=== PATIENT | male | born 1975 | race Caucasian/White ===

== ENCOUNTER 2017-06-21 20:02 | Inpatient (IN) | payer SELFPAY ==
[~2017-06-21] VITALS: Ht 185.4 cm; Wt 99.8 kg
[2017-06-21] MEDS ORDERED: SODIUM CHLORIDE 0.9% 1,000 ML IV ONE ×2 (20:35→22:43)
[2017-06-21] MEDS ORDERED: ONDANSETRON HCL 4MG/2ML VIAL IV STA (20:35)
[2017-06-21] MEDS ORDERED: MORPHINE SULFATE 4 MG/ML CPJ (NOT FOR IM USE) IV STA ×2 (20:35→22:43)
[2017-06-21 23:24] LABS: CHLORIDE 109 mEq/L (98-107)
[2017-06-21 23:26] LABS: BASOPHILS % 0.2 % (0.0-2.0); EOSINOPHILS % 0.1 % (0.0-5.0); HEMATOCRIT. 42.8 % (42.0-52.0); HEMOGLOBIN. 13.8 g/dL (14.0-18.0); LYMPHOCYTES % 8.7 % (20.0-50.0); MEAN CORPUSCULAR HEMOGLOBIN 27.5 pg (28.0-32.0); MEAN CORPUSCULAR VOLUME 85.1 fL (80.0-94.0); MEAN PLATELET VOLUME 8.5 fl (7.4-10.4); MONOCYTES % 7.3 % (2.0-8.0); NEUTROPHILS % 83.7 % (40.0-76.0); PLATELET 310 x1000/uL (130-400); RED BLOOD CELL COUNT 5.03 mill/uL (4.7-6.1); RED CELL DISTRIBUTION WIDTH 13.4 % (11.6-14.6)
[2017-06-21 23:41] LABS: PROTHROMBIN TIME 10.6 sec (9.4-11.6)
[2017-06-22] MEDS: SODIUM CHLORIDE 0.45% 1,000 ML IV SCH (03:36)
[2017-06-22] MEDS ORDERED: ONDANSETRON HCL 4MG/2ML VIAL IV PRN (03:45)
[2017-06-22] MEDS ORDERED: DOCUSATE SODIUM 100MG CAPSULE PO PRN (03:45)
[2017-06-22] MEDS ORDERED: IPRATROPIUM/ALBUTEROL 0.5-3(2.5)MG/3ML NEB INH PRN (03:45)
[2017-06-22] MEDS ORDERED: CLONIDINE 0.1MG TABLET PO PRN (03:45)
[2017-06-22] MEDS ORDERED: HYDROCODONE/ACETAMINOPHEN 10/325MG TABLET PO PRN (03:45)
[2017-06-22] MEDS: HYDROMORPHONE HCL/PF 2MG/ML CPJ IV PRN ×6 (04:58→23:40)
[2017-06-22] MEDS: AMLODIPINE 10MG TABLET PO SCH (09:00)
[2017-06-22] MEDS: ENOXAPARIN 40MG/0.4ML SYR SUBCUT SCH (11:40)
[2017-06-22 12:00] VITALS: BP 130/75
[2017-06-22 16:12] VITALS: BP 153/83
[2017-06-22] MEDS ORDERED: BACITRACIN ZINC 15GM TUBE TOP ONE (17:42)
[2017-06-22] MEDS ORDERED: VANCOMYCIN HCL 500 MG/VIAL ONE (17:42)
[2017-06-22] MEDS ORDERED: FENTANYL CITRATE/PF 50MCG/ML 2ML VIAL ONE ×3 (18:12→21:08)
[2017-06-22] MEDS ORDERED: LIDOCAINE HCL/PF 1% 10 MG/ML 5ML VIAL ONE ×2 (18:12→20:14)
[2017-06-22] MEDS ORDERED: SUCCINYLCHOLINE CHLORIDE 200MG/10ML VIAL IV ONE (18:12)
[2017-06-22] MEDS ORDERED: MIDAZOLAM HCL 2 MG/2 ML VIAL ONE ×2 (18:12→20:31)
[2017-06-22] MEDS ORDERED: PROPOFOL 200MG/20ML VIAL IV ONE ×3 (18:12→20:56)
[2017-06-22 19:29] VITALS: BP 142/66
[2017-06-22] MEDS ORDERED: PHENYLEPHRINE HCL 10 MG/ML 1ML (IV VIAL) IV ONE (20:11)
[2017-06-22] MEDS ORDERED: CEFAZOLIN SODIUM 1000MG/VIAL ONE (20:51)
[2017-06-23] VITALS: BP 142/92
[2017-06-23] MEDS: HYDROMORPHONE HCL/PF 2MG/ML CPJ IV PRN ×6 (02:16→21:20)
[2017-06-23 04:00] VITALS: BP 132/69
[2017-06-23] MEDS: SODIUM CHLORIDE 0.45% 1,000 ML IV SCH ×2 (05:39→13:18)
[2017-06-23] MEDS: CEFAZOLIN 1000MG PREMIX 50 ML IV SCH ×2 (05:39→13:18)
[2017-06-23 06:57] LABS: BASOPHILS % 0.3 % (0.0-2.0); EOSINOPHILS % 0.6 % (0.0-5.0); HEMATOCRIT. 32.8 % (42.0-52.0); LYMPHOCYTES % 22.3 % (20.0-50.0); MEAN CORPUSCULAR VOLUME 83.8 fL (80.0-94.0); MEAN PLATELET VOLUME 8.6 fl (7.4-10.4); MONOCYTES % 14.3 % (2.0-8.0); NEUTROPHILS % 62.5 % (40.0-76.0); PLATELET 255 x1000/uL (130-400); RED BLOOD CELL COUNT 3.91 mill/uL (4.7-6.1); RED CELL DISTRIBUTION WIDTH 12.9 % (11.6-14.6)
[2017-06-23 07:14] LABS: CHLORIDE 105 mEq/L (98-107)
[2017-06-23 08:30] VITALS: BP 130/67
[2017-06-23] MEDS: AMLODIPINE 10MG TABLET PO SCH (09:03)
[2017-06-23] MEDS: ENOXAPARIN 40MG/0.4ML SYR SUBCUT SCH (10:01)
[2017-06-23 12:28] VITALS: BP 124/72
[2017-06-23 16:00] VITALS: BP 124/81
[2017-06-23] MEDS: ACETAMINOPHEN 325MG TABLET PO PRN (21:28)
[2017-06-24] VITALS: BP 123/73
[2017-06-24] MEDS: HYDROMORPHONE HCL/PF 2MG/ML CPJ IV PRN ×8 (03:08→23:46)
[2017-06-24 04:00] VITALS: BP 103/64
[2017-06-24] MEDS: SODIUM CHLORIDE 0.45% 1,000 ML IV SCH (06:33)
[2017-06-24 07:15] VITALS: BP 124/78
[2017-06-24] MEDS: ENOXAPARIN 30MG/0.3ML SYR SUBCUT SCH ×2 (08:37→20:42)
[2017-06-24] MEDS: AMLODIPINE 10MG TABLET PO SCH (08:38)
[2017-06-24 12:00] VITALS: BP 128/69
[2017-06-24 16:00] VITALS: BP 131/73
[2017-06-24 20:00] VITALS: BP 110/66
[2017-06-24] MEDS: ACETAMINOPHEN 325MG TABLET PO PRN (20:42)
[2017-06-25] VITALS: BP 105/50
[2017-06-25 04:00] VITALS: BP 120/72
[2017-06-25] MEDS: HYDROMORPHONE HCL/PF 2MG/ML CPJ IV PRN ×7 (04:37→23:36)
[2017-06-25] MEDS: SODIUM CHLORIDE 0.45% 1,000 ML IV SCH ×2 (04:37→14:56)
[2017-06-25 08:00] VITALS: BP 117/64
[2017-06-25] MEDS: AMLODIPINE 10MG TABLET PO SCH (08:57)
[2017-06-25] MEDS: ENOXAPARIN 30MG/0.3ML SYR SUBCUT SCH ×2 (08:57→20:33)
[2017-06-25] MEDS: PIPERACILLIN/TAZ 3.375G PREMIX 50 ML IV SCH ×4 (09:34→17:13)
[2017-06-25 12:00] VITALS: BP 114/62
[2017-06-25 12:33] LABS: BASOPHILS % 0.6 % (0.0-2.0); EOSINOPHILS % 2.7 % (0.0-5.0); HEMATOCRIT. 29.8 % (42.0-52.0); HEMOGLOBIN. 10.1 g/dL (14.0-18.0); LYMPHOCYTES % 18.5 % (20.0-50.0); MEAN CORPUSCULAR HEMOGLOBIN 28.4 pg (28.0-32.0); MEAN CORPUSCULAR VOLUME 83.8 fL (80.0-94.0); MEAN PLATELET VOLUME 8.3 fl (7.4-10.4); MONOCYTES % 13.2 % (2.0-8.0); PLATELET 277 x1000/uL (130-400); RED BLOOD CELL COUNT 3.56 mill/uL (4.7-6.1); RED CELL DISTRIBUTION WIDTH 13.1 % (11.6-14.6)
[2017-06-25 12:38] LABS: CHLORIDE 103 mEq/L (98-107)
[2017-06-25 16:00] VITALS: BP 111/59
[2017-06-25 20:00] VITALS: BP 111/77
[2017-06-26] VITALS: BP 96/50
[2017-06-26] MEDS: PIPERACILLIN/TAZ 3.375G PREMIX 50 ML IV SCH ×5 (01:04→23:52)
[2017-06-26] MEDS: HYDROMORPHONE HCL/PF 2MG/ML CPJ IV PRN ×8 (01:45→23:48)
[2017-06-26 04:00] VITALS: BP 103/60
[2017-06-26 08:00] VITALS: BP 120/62
[2017-06-26] MEDS: AMLODIPINE 10MG TABLET PO SCH (08:48)
[2017-06-26] MEDS: ENOXAPARIN 30MG/0.3ML SYR SUBCUT SCH ×2 (08:54→22:02)
[2017-06-26 12:00] VITALS: BP 123/72
[2017-06-26 16:00] VITALS: BP 120/62
[2017-06-26] MEDS: SODIUM CHLORIDE 0.45% 1,000 ML IV SCH ×2 (16:59→23:49)
[2017-06-26 20:00] VITALS: BP 120/69
[2017-06-27] VITALS: BP 130/56
[2017-06-27] MEDS: HYDROMORPHONE HCL/PF 2MG/ML CPJ IV PRN ×5 (01:54→11:06)
[2017-06-27 04:00] VITALS: BP 150/85
[2017-06-27] MEDS: PIPERACILLIN/TAZ 3.375G PREMIX 50 ML IV SCH ×3 (06:29→18:47)
[2017-06-27 08:00] VITALS: BP 127/76
[2017-06-27] MEDS: AMLODIPINE 10MG TABLET PO SCH (08:55)
[2017-06-27] MEDS: ENOXAPARIN 30MG/0.3ML SYR SUBCUT SCH ×2 (08:55→21:26)
[2017-06-27 12:00] VITALS: BP 121/76
[2017-06-27] MEDS ORDERED: HYDROMORPHONE HCL/PF 2MG/ML CPJ IV PRN (14:00)
[2017-06-27] MEDS: LACTULOSE 20G/30ML UDC PO SCH ×2 (14:00→21:28)
[2017-06-27 16:00] VITALS: BP 105/64
[2017-06-27 20:00] VITALS: BP 114/74
[2017-06-27] MEDS: HYDROCODONE/APAP 7.5/325MG 1 TAB TABLET PO PRN (21:26)
[2017-06-28] VITALS (8 sets, daily range): BP systolic 110–153; BP diastolic 60–84
[2017-06-28] MEDS: PIPERACILLIN/TAZ 3.375G PREMIX 50 ML IV SCH ×4 (01:16→17:35)
[2017-06-28] MEDS: HYDROCODONE/APAP 7.5/325MG 1 TAB TABLET PO PRN ×3 (01:16→10:09)
[2017-06-28] MEDS: LACTULOSE 20G/30ML UDC PO SCH ×3 (05:57→22:00)
[2017-06-28] MEDS: ENOXAPARIN 30MG/0.3ML SYR SUBCUT SCH ×2 (08:41→22:06)
[2017-06-28] MEDS: AMLODIPINE 10MG TABLET PO SCH (08:42)
[2017-06-28] MEDS: HYDROCODONE/ACETAMINOPHEN 10/325MG TABLET PO PRN ×3 (13:32→22:06)
[2017-06-29] VITALS (7 sets, daily range): BP systolic 119–137; BP diastolic 65–85
[2017-06-29] MEDS: PIPERACILLIN/TAZ 3.375G PREMIX 50 ML IV SCH ×3 (00:02→11:53)
[2017-06-29] MEDS: HYDROCODONE/ACETAMINOPHEN 10/325MG TABLET PO PRN ×3 (01:45→09:41)
[2017-06-29] MEDS: ACETAMINOPHEN 325MG TABLET PO PRN (01:45)
[2017-06-29] MEDS: HYDROCODONE/APAP 7.5/325MG 1 TAB TABLET PO PRN ×2 (03:04→11:53)
[2017-06-29] MEDS: LACTULOSE 20G/30ML UDC PO SCH ×3 (05:07→21:55)
[2017-06-29] MEDS: AMLODIPINE 10MG TABLET PO SCH (09:28)
[2017-06-29] MEDS: ENOXAPARIN 30MG/0.3ML SYR SUBCUT SCH ×2 (09:28→21:53)
[2017-06-29] MEDS: OXYCODONE HCL/ACETAMINOPHEN 5/325MG TABLET PO PRN ×3 (13:51→21:54)
[2017-06-30] VITALS: BP 106/62
[2017-06-30] MEDS: OXYCODONE HCL/ACETAMINOPHEN 5/325MG TABLET PO PRN ×5 (01:59→21:56)
[2017-06-30 04:00] VITALS: BP 135/80
[2017-06-30] MEDS: LACTULOSE 20G/30ML UDC PO SCH ×3 (06:00→21:05)
[2017-06-30 08:00] VITALS: BP 110/79
[2017-06-30] MEDS: AMLODIPINE 10MG TABLET PO SCH (09:36)
[2017-06-30] MEDS: ENOXAPARIN 30MG/0.3ML SYR SUBCUT SCH ×2 (09:37→21:05)
[2017-06-30 12:00] VITALS: BP 128/83
[2017-06-30] MEDS: BACLOFEN 10MG TABLET PO SCH ×2 (14:59→21:09)
[2017-06-30 16:00] VITALS: BP 129/77
[2017-06-30 16:22] LABS: BASOPHILS % 0.3 % (0.0-2.0); EOSINOPHILS % 3.7 % (0.0-5.0); HEMATOCRIT. 34.6 % (42.0-52.0); HEMOGLOBIN. 11.4 g/dL (14.0-18.0); LYMPHOCYTES % 13.6 % (20.0-50.0); MEAN CORPUSCULAR HEMOGLOBIN 27.5 pg (28.0-32.0); MEAN CORPUSCULAR VOLUME 83.7 fL (80.0-94.0); MEAN PLATELET VOLUME 7.3 fl (7.4-10.4); MONOCYTES % 11.4 % (2.0-8.0); PLATELET 647 x1000/uL (130-400); RED BLOOD CELL COUNT 4.14 mill/uL (4.7-6.1); RED CELL DISTRIBUTION WIDTH 13.4 % (11.6-14.6)
[2017-06-30 16:41] LABS: CHLORIDE 102 mEq/L (98-107)
[2017-06-30 20:00] VITALS: BP 123/67
[2017-07-01] VITALS: BP 145/76
[2017-07-01] MEDS: OXYCODONE HCL/ACETAMINOPHEN 5/325MG TABLET PO PRN ×4 (02:33→20:36)
[2017-07-01 04:00] VITALS: BP 134/76
[2017-07-01] MEDS: LACTULOSE 20G/30ML UDC PO SCH ×3 (06:00→21:21)
[2017-07-01] MEDS: HYDROCODONE/APAP 7.5/325MG 1 TAB TABLET PO PRN ×3 (06:37→23:49)
[2017-07-01] MEDS: BACLOFEN 10MG TABLET PO SCH ×3 (06:39→21:20)
[2017-07-01 08:00] VITALS: BP 125/74
[2017-07-01] MEDS: ENOXAPARIN 30MG/0.3ML SYR SUBCUT SCH ×2 (09:40→20:36)
[2017-07-01] MEDS: AMLODIPINE 10MG TABLET PO SCH (09:40)
[2017-07-01 12:00] VITALS: BP 137/84
[2017-07-01 16:00] VITALS: BP 122/77
[2017-07-01 20:00] VITALS: BP 136/80
[2017-07-02] VITALS: BP 114/74
[2017-07-02] MEDS: OXYCODONE HCL/ACETAMINOPHEN 5/325MG TABLET PO PRN ×4 (02:38→22:22)
[2017-07-02 04:00] VITALS: BP 126/71
[2017-07-02] MEDS: LACTULOSE 20G/30ML UDC PO SCH ×3 (06:00→21:10)
[2017-07-02] MEDS: HYDROCODONE/APAP 7.5/325MG 1 TAB TABLET PO PRN ×2 (06:12→13:10)
[2017-07-02] MEDS: BACLOFEN 10MG TABLET PO SCH ×3 (06:14→22:22)
[2017-07-02 08:06] VITALS: BP 120/89
[2017-07-02] MEDS: AMLODIPINE 10MG TABLET PO SCH (08:46)
[2017-07-02] MEDS: ENOXAPARIN 30MG/0.3ML SYR SUBCUT SCH ×2 (08:47→20:07)
[2017-07-02 11:57] VITALS: BP 113/74
[2017-07-02 16:00] VITALS: BP 111/67
[2017-07-02 20:00] VITALS: BP 123/83
[2017-07-03] VITALS (7 sets, daily range): BP systolic 116–129; BP diastolic 60–80
[2017-07-03] MEDS: OXYCODONE HCL/ACETAMINOPHEN 5/325MG TABLET PO PRN ×6 (02:14→23:50)
[2017-07-03] MEDS: LACTULOSE 20G/30ML UDC PO SCH ×3 (05:51→21:16)
[2017-07-03] MEDS: BACLOFEN 10MG TABLET PO SCH ×3 (05:57→21:17)
[2017-07-03] MEDS: AMLODIPINE 10MG TABLET PO SCH (09:49)
[2017-07-03] MEDS: ENOXAPARIN 30MG/0.3ML SYR SUBCUT SCH ×2 (09:49→21:17)
[2017-07-04] VITALS: BP 128/85
[2017-07-04 04:00] VITALS: BP 118/72
[2017-07-04] MEDS: OXYCODONE HCL/ACETAMINOPHEN 5/325MG TABLET PO PRN ×5 (04:03→21:12)
[2017-07-04] MEDS: LACTULOSE 20G/30ML UDC PO SCH ×3 (05:19→21:14)
[2017-07-04] MEDS: BACLOFEN 10MG TABLET PO SCH ×3 (05:19→21:12)
[2017-07-04 08:00] VITALS: BP 118/60
[2017-07-04] MEDS: AMLODIPINE 10MG TABLET PO SCH (08:29)
[2017-07-04] MEDS: ENOXAPARIN 30MG/0.3ML SYR SUBCUT SCH ×2 (08:31→21:12)
[2017-07-04 12:00] VITALS: BP 124/73
[2017-07-04 16:00] VITALS: BP 130/80
[2017-07-05] VITALS: BP 103/62
[2017-07-05] MEDS: OXYCODONE HCL/ACETAMINOPHEN 5/325MG TABLET PO PRN ×6 (01:06→21:24)
[2017-07-05 04:00] VITALS: BP 126/65
[2017-07-05] MEDS: LACTULOSE 20G/30ML UDC PO SCH ×3 (05:23→21:24)
[2017-07-05] MEDS: BACLOFEN 10MG TABLET PO SCH ×3 (05:36→21:23)
[2017-07-05 08:00] VITALS: BP 118/75
[2017-07-05] MEDS: AMLODIPINE 10MG TABLET PO SCH (09:25)
[2017-07-05] MEDS: ENOXAPARIN 30MG/0.3ML SYR SUBCUT SCH ×2 (09:26→20:33)
[2017-07-05 12:00] VITALS: BP 112/63
[2017-07-05 16:00] VITALS: BP 122/75
[2017-07-05 20:00] VITALS: BP 120/72
[2017-07-05] MEDS: ACETAMINOPHEN 325MG TABLET PO PRN (20:32)
[2017-07-06] VITALS: BP 119/62
[2017-07-06] MEDS: OXYCODONE HCL/ACETAMINOPHEN 5/325MG TABLET PO PRN ×4 (01:31→13:38)
[2017-07-06] MEDS: ACETAMINOPHEN 325MG TABLET PO PRN (03:43)
[2017-07-06 04:00] VITALS: BP 109/67
[2017-07-06] MEDS: BACLOFEN 10MG TABLET PO SCH ×3 (05:24→21:16)
[2017-07-06] MEDS: LACTULOSE 20G/30ML UDC PO SCH ×3 (05:25→21:20)
[2017-07-06 08:00] VITALS: BP 117/69
[2017-07-06] MEDS: AMLODIPINE 10MG TABLET PO SCH (09:13)
[2017-07-06] MEDS: ENOXAPARIN 30MG/0.3ML SYR SUBCUT SCH ×2 (09:13→21:18)
[2017-07-06 12:06] VITALS: BP 124/66
[2017-07-06] MEDS: OXYCODONE HCL 5MG TABLET PO PRN (15:50)
[2017-07-06 16:00] VITALS: BP 121/73
[2017-07-06 20:00] VITALS: BP 112/72
[2017-07-06] MEDS: OXYCODONE HCL 10MG TABLET SR 12HR PO SCH (21:17)
[2017-07-07] VITALS: BP 122/79
[2017-07-07] MEDS: ZOLPIDEM TARTRATE 5MG TABLET PO PRN ×2 (01:20→22:07)
[2017-07-07] MEDS: OXYCODONE HCL 5MG TABLET PO PRN ×4 (01:28→17:42)
[2017-07-07 04:00] VITALS: BP 118/81
[2017-07-07] MEDS: LACTULOSE 20G/30ML UDC PO SCH ×3 (06:00→21:16)
[2017-07-07] MEDS: BACLOFEN 10MG TABLET PO SCH ×3 (06:23→21:15)
[2017-07-07 08:00] VITALS: BP 120/60
[2017-07-07] MEDS: ENOXAPARIN 30MG/0.3ML SYR SUBCUT SCH ×2 (09:23→21:16)
[2017-07-07] MEDS: OXYCODONE HCL 10MG TABLET SR 12HR PO SCH ×2 (09:24→21:16)
[2017-07-07] MEDS: AMLODIPINE 10MG TABLET PO SCH (09:24)
[2017-07-07 12:00] VITALS: BP 130/70
[2017-07-07] MEDS: INDOMETHACIN 25MG CAPSULE PO SCH ×2 (13:15→17:00)
[2017-07-07] MEDS: COLCHICINE 0.6MG TABLET PO SCH ×2 (14:07→17:22)
[2017-07-07 16:00] VITALS: BP 139/84
[2017-07-07 20:00] VITALS: BP_SYST 105; BP_SYST 128; BP_DIAS 60; BP_DIAS 80
[2017-07-08] VITALS: BP 116/66
[2017-07-08] MEDS: OXYCODONE HCL 5MG TABLET PO PRN ×3 (02:16→13:14)
[2017-07-08 04:00] VITALS: BP 112/65
[2017-07-08] MEDS: LACTULOSE 20G/30ML UDC PO SCH ×2 (05:46→13:14)
[2017-07-08] MEDS: BACLOFEN 10MG TABLET PO SCH ×2 (06:09→13:13)
[2017-07-08 08:00] VITALS: BP 118/68
[2017-07-08] MEDS: INDOMETHACIN 25MG CAPSULE PO SCH ×2 (08:47→13:14)
[2017-07-08] MEDS: COLCHICINE 0.6MG TABLET PO SCH (08:47)
[2017-07-08] MEDS: AMLODIPINE 10MG TABLET PO SCH (08:48)
[2017-07-08] MEDS: OXYCODONE HCL 10MG TABLET SR 12HR PO SCH (08:48)
[2017-07-08] MEDS: ENOXAPARIN 30MG/0.3ML SYR SUBCUT SCH (08:49)
[2017-07-08 12:00] VITALS: BP 118/68
[2017-07-08 12:17] VITALS: BP 117/65
[2017-07-08 13:45] VITALS: BP 118/68
== END 2017-07-08 15:50 | disposition short-term general hospital (02) | DRG 313 ==
LOC: ER 20:02 → 6EST 06-22 00:29 → EDBEDREQ 06-22 00:31 → EDBEDREQSVC 06-22 00:31 → SUPCPDRO 06-22 03:35 → ENRESERV 06-22 07:01 → 6EST 07-02 02:40
PROVIDERS: ADMIT Hospitalist; ATTEND Hospitalist
PROC: 0S9C3ZZ Drainage of Right Knee Joint, Percutaneous Approach (ICD-10-PCS; 2017-06-22)
PROC: 0QHG35Z Insertion of External Fixation Device into Right Tibia, Percutaneous Approach (ICD-10-PCS; principal; 2017-06-22 20:00)
DX: S82.141A Displaced bicondylar fracture of right tibia, initial encounter for closed fracture (principal); D72.829 Elevated white blood cell count, unspecified; F15.90 Other stimulant use, unspecified, uncomplicated; V29.9XXA Motorcycle rider (driver) (passenger) injured in unspecified traffic accident, initial encounter; Y93.89 Activity, other specified; Y92.89 Other specified places as the place of occurrence of the external cause; Y99.8 Other external cause status
CPT/HCPCS: 36415; 73560; 73590; 76000; 80048; 80053; 83735; 85025; 85610; 86850; 86900; 96361; 96374; 96375; 96376; 97116; 97163; 97530; 97535; 99285; C1893; J0330; J0690; J1170; J1650; J2250; J2270; J2370; J2405; J2543; J2704; J3010; J3370; J3490; J7030; J7050